=== PATIENT | female | born 1985 ===

== ENCOUNTER 2017-02-14 08:16 | Emergency (ER) | payer MEDICAID ==
[2017-02-14 08:27] VITALS: BP 141/72; PULSE 92; RESP 18; TEMP 98.1; O2SAT 90; BMI 46.2
--- NOTE | 2017-02-14 09:53 | ED PDOC ---
HPI: CCC, URI, Sore Throat Time Seen by Provider: 02/14/17 09:02 Chief Complaint (Nursing): ENT Problem Chief Complaint (Provider): flu like symptoms History Per: Patient, Search Specialist (Indemand) History/Exam Limitations: other (poor cognition\) Onset/Duration Of Symptoms: Gradual, Unknown Current Symptoms Are (Timing): Still Present Location Of Pain: Throat, Diffuse Myalgias Sick Contacts (Context): None Associated Symptoms: Chills, Sore Throat, Cough, Myalgias. denies: Vomiting, Diarrhea Severity: Moderate Additional Complaint(s): 31yo female hx tricuspid regurg (?) during prior , now 13wks , with body aches, cough, sore throat and yellow crusting to eyes this morning. Denies orthopnea, SOB, focal weakness, change vision or sick contacts. Did not get flu shot this year. Has not had care yet, due to start in [place] on march 04. Past Medical History Reviewed: Historical Data, Nursing Documentation, Vital Signs Vital Signs: Last Vital Signs Temp 98.1 F 02/14/17 08:25 Pulse 92 H 02/14/17 08:25 Resp 18 02/14/17 08:25 BP 141/72 02/14/17 08:25 Pulse Ox 90 L 02/14/17 11:48 - Medical History PMH: Anxiety, Asthma, Depression, Diabetes (gestational), Hypercholesterolemia, Pneumonia Denies: Chronic Kidney Disease - Family History Family History: States: Unknown Family Hx - Living Arrangements Living Arrangements: With Family - Social History Current smoker - smoking cessation education provided: No - Immunization History Hx Tetanus Toxoid Vaccination: No Hx Influenza Vaccination: No Hx Pneumococcal Vaccination: No - Home Medications Home Medications: Ambulatory Orders Medication Instructions Recorded Acetaminophen [Tylenol 325mg tab] 650 mg PO Q4 PRN #0 tab 02/23/16 Acetaminophen [Pain Reliever] 650 mg PO Q4 PRN #16 tablet 02/14/17 Cephalexin [Keflex] 250 mg PO TID #15 capsule 02/14/17 Pnv#26/Iron Poly/FA/Dha 1 tab PO DAILY 02/14/17 [Vitafol-One Capsule] Polymyxin/Trimethoprim Sulfate 2 drop OU TID #1 bottle 02/14/17 [Polytrim Ophth Soln] - Allergies Allergies/Adverse Reactions: Allergies Allergy/AdvReac Type Severity Reaction Status Date / Time No Known Allergies Allergy Verified 02/14/17 08:41 Review of Systems Constitutional: Positive for: Chills ENT: Positive for: Throat Pain. Negative for: Ear Discharge, Nose Discharge, Throat Swelling Cardiovascular: Negative for: Chest Pain, Palpitations Respiratory: Negative for: Cough, Shortness of Breath Gastrointestinal: Negative for: Nausea, Vomiting Genitourinary Female: Negative for: Dysuria, Frequency, Vaginal Bleeding Musculoskeletal: Negative for: Neck Pain, Shoulder Pain Skin: Negative for: Rash, Lesions, Jaundice, Bruising Neurological: Positive for: Dizziness. Negative for: Weakness, Numbness Psych: Negative for: Anxiety Physical Exam - Reviewed Nursing Documentation Reviewed: Yes Vital Signs Reviewed: Yes - Physical Exam Appears: Positive for: Well, Non-toxic, No Acute Distress Head Exam: Positive for: ATRAUMATIC, NORMAL INSPECTION, NORMOCEPHALIC Skin: Positive for: Normal Color, Warm, DRY Eye Exam: Positive for: EOMI, Normal appearance, PERRL ENT: Positive for: Normal ENT Inspection, Pharyngeal Erythema, Tonsillar Exudate , Tonsillar Swelling (trace) Neck: Positive for: Normal, Painless ROM Cardiovascular/Chest: Positive for: Regular Rate, Rhythm Respiratory: Positive for: CNT, Normal Breath Sounds Gastrointestinal/Abdominal: Positive for: Normal Exam, Bowel Sounds, Soft. Negative for: Tenderness Back: Positive for: Normal Inspection Extremity: Positive for: Normal ROM Neurologic/Psych: Positive for: Alert, Oriented. Negative for: Motor/Sensory Deficits - ECG O2 Sat by Pulse Oximetry: 90 Medical Decision Making Medical Decision Making: check flu, SPO2 normal 98% in ED. Denies pelvic pain or bleeding. Tylenol started for symptoms. Flu negative. Given and clinical findings exudates start keflex empirically. Disposition - Clinical Impression Clinical Impression: Pharyngitis, Upper respiratory infection, Conjunctivitis - Disposition Referrals: [facility] [Outside] Disposition: Routine/Home Disposition Time: 11:30 Condition: STABLE Additional Instructions: Take medication as directed. Drink plenty of fluids, use tylenol only for pain or fever. Return to ER for any abdominal pain, bleeding, cramping or any concern. See OB doctor as soon as possible for further testing. Prescriptions: Cephalexin [Keflex] 250 mg PO TID #15 capsule Acetaminophen [Pain Reliever] 650 mg PO Q4 PRN #16 tablet PRN Reason: Pain, Moderate (4-7) Polymyxin/Trimethoprim Sulfate [Polytrim Ophth Soln] 2 drop OU TID #1 bottle Instructions: Pharyngitis (ED), Conjunctivitis (ED)
== END 2017-02-14 12:03 | disposition home or self-care (01) ==
LOC: H.ER 08:16
DX: J02.9 Acute pharyngitis, unspecified (principal); J06.9 Acute upper respiratory infection, unspecified; H10.9 Unspecified conjunctivitis; E78.00 Pure hypercholesterolemia, unspecified; F41.9 Anxiety disorder, unspecified; J45.909 Unspecified asthma, uncomplicated

== ENCOUNTER 2017-03-17 11:02 | Emergency (ER) | payer MEDICAID ==
[2017-03-17 11:03] VITALS: BMI 46.2
[2017-03-17 11:20] VITALS: BP 125/65; PULSE 86; RESP 20; TEMP 98.4; O2SAT 97
--- NOTE | 2017-03-17 11:59 | ED PDOC ---
HPI: General Adult Time Seen by Provider: 03/17/17 11:56 Chief Complaint (Nursing): Abdominal Pain Chief Complaint (Provider): abdominal pain History Per: Patient History/Exam Limitations: no limitations Additional Complaint(s): 31yo female, 17 weeks , A3, comes to the ED complaining of lower abdominal pain. States first 3x pregnancies have resulted in spontaneous abortions. No vaginal bleeding or discharge. Not taking anything for pain. No chest pain or shortness of breath. No tobacco, alcohol or drug use. 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 @ [facility] Past Medical History Reviewed: Historical Data, Nursing Documentation, Vital Signs Vital Signs: Last Vital Signs Temp 98.4 F 03/17/17 11:15 Pulse 86 03/17/17 11:15 Resp 20 03/17/17 11:15 BP 125/65 03/17/17 11:15 Pulse Ox 97 03/17/17 12:03 - Medical History PMH: Anxiety, Asthma, Depression, Diabetes (gestational), Hypercholesterolemia, Pneumonia Denies: Chronic Kidney Disease - Family History Family History: States: Unknown Family Hx - Living Arrangements Living Arrangements: With Family - Social History Current smoker - smoking cessation education provided: No Alcohol: None Drugs: Denies - Immunization History Hx Tetanus Toxoid Vaccination: No Hx Influenza Vaccination: No Hx Pneumococcal Vaccination: No - Home Medications Home Medications: Ambulatory Orders Medication Instructions Recorded Acetaminophen [Tylenol 325mg tab] 650 mg PO Q4 PRN #0 tab 02/23/16 Acetaminophen [Pain Reliever] 650 mg PO Q4 PRN #16 tablet 02/14/17 Cephalexin [Keflex] 250 mg PO TID #15 capsule 02/14/17 Pnv#26/Iron Poly/FA/Dha 1 tab PO DAILY 02/14/17 [Vitafol-One Capsule] Polymyxin/Trimethoprim Sulfate 2 drop OU TID #1 bottle 02/14/17 [Polytrim Ophth Soln] - Allergies Allergies/Adverse Reactions: Allergies Allergy/AdvReac Type Severity Reaction Status Date / Time No Known Allergies Allergy Verified 03/17/17 11:15 Review of Systems ROS Statement: Except As Marked, All Systems Reviewed And Found Negative Gastrointestinal: Positive for: Abdominal Pain Genitourinary Female: Negative for: Dysuria, Hematuria Physical Exam - Reviewed Nursing Documentation Reviewed: Yes Vital Signs Reviewed: Yes - Physical Exam Appears: Positive for: Well, Non-toxic, No Acute Distress Head Exam: Positive for: ATRAUMATIC, NORMAL INSPECTION, NORMOCEPHALIC Skin: Positive for: Warm, Dry Eye Exam: Positive for: EOMI, PERRL Cardiovascular/Chest: Positive for: Regular Rate, Rhythm Respiratory: Positive for: Normal Breath Sounds. Negative for: Rales, Rhonchi, Wheezing Gastrointestinal/Abdominal: Positive for: Normal Exam, Soft. Negative for: Tenderness Extremity: Positive for: Normal ROM - Laboratory Results Result Diagrams: 03/17/17 12:20 - ECG O2 Sat by Pulse Oximetry: 97 (RA) Pulse Ox Interpretation: Normal Medical Decision Making Medical Decision Makin explained UTI vs round ligament. Labs resulted and reviewed with pt who demonstrated full understanding Labs, US pelvis ordered. Impression: Single living fetus with a composite sonographic age of 17 weeks 6 days. Estimated heart rate 152 beats per min. The study was performed for the emergent evaluation of pain, and the whole anatomic survey of the fetus was not performed. This should be performed on an outpatient elective basis as clinically warranted. Disposition - Clinical Impression Clinical Impression: Abdominal pain - Patient ED Disposition Is Patient to be Admitted: No - Disposition Disposition: Routine/Home Disposition Time: 15:59 Condition: STABLE Instructions: Abdominal Pain in (ED) Additional Comments - Additional Comments Additional Comments: Scribe Attestation Documented by Anthony Larry acting as a scribe for Isidro Hudson PA-C. Provider Attestation: All medical record entries made by the Scribe were at my direction and personally dictated by me. I have reviewed the chart and agree that the record accurately reflects my personal performance of the history, physical exam, medical decision making, and the department course for this patient. I have also personally directed, reviewed, and agree with the discharge instructions and disposition.
[2017-03-17 12:35] LABS: BASO # 0.1 K/uL (0.0-0.2); BASO % 0.6 % (0.0-2.0); EOS # 0.1 K/uL (0.0-0.7); EOS % 0.8 % (0.0-4.0); HEMATOCRIT 36.8 % (34.0-47.0); LYMPH # 2.5 K/uL (1.0-4.3); LYMPH % 23.3 % (20.0-40.0); MEAN CELL VOLUME 86.8 fl (81.0-99.0); MEAN CORPUSCULAR HEMOGLOBIN 28.9 pg (27.0-31.0); MEAN CORPUSCULAR HGB CONC 33.3 g/dL (33.0-37.0); MEAN PLATELET VOLUME 9.2 fl (7.2-11.7); MONO # 0.7 K/uL (0.0-0.8); MONO % 6.4 % (0.0-10.0); NEUT # 7.5 K/uL (1.8-7.0); NEUT % 68.9 % (50.0-75.0); RED CELL DISTRIBUTION WIDTH 12.4 % (11.5-14.5); WHITE BLOOD COUNT 10.9 K/uL (4.8-10.8)
[2017-03-17 12:39] LABS: RBC URINE 1 /hpf (0-3); URINE BILIRUBIN NEGATIVE (NEGATIVE); URINE BLOOD SMALL (NEGATIVE); URINE COLOR YELLOW (YELLOW); URINE GLUCOSE (UA) NEG (Normal); URINE KETONE NEGATIVE (NEGATIVE); URINE LEUKOCYTE ESTERASE NEG Leu/uL (Negative); URINE PROTEIN NEGATIVE (NEGATIVE); URINE UROBILINOGEN 0.2-1.0 mg/dL (0.2-1.0); WBC URINE < 1 /hpf (0-5)
--- NOTE | 2017-03-17 14:20 | US ---
Indication: pain, 17 weeks Comparison: Ob transvaginal ultrasound performed 01/02/17 Technique: Real-time ultrasound was performed through the pelvis. Findings: There is a single living fetus in transverse presentation. Fundal right placenta. Bilateral ovaries are not visualized. Measurements and calculations: Fetus has a composite sonographic age of 17 weeks 6 days plus/-1 week. This calculation is based on the biparietal diameter, head circumference, abdominal circumference, and femur length. Estimated heart rate 152 beats per min. Impression: Single living fetus with a composite sonographic age of 17 weeks 6 days. Estimated heart rate 152 beats per min. The study was performed for the emergent evaluation of pain, and the whole anatomic survey of the fetus was not performed. This should be performed on an outpatient elective basis as clinically warranted.
== END 2017-03-17 14:49 | disposition home or self-care (01) ==
LOC: H.ER 11:02
DX: O99.89 Other specified diseases and conditions complicating pregnancy, childbirth and the puerperium (principal); Z3A.17 17 weeks gestation of pregnancy

== ENCOUNTER 2017-06-12 20:25 | Emergency (ER) | payer MEDICAID ==
[2017-06-12 21:11] VITALS: BMI 45.7
[2017-06-12 21:44] LABS: SQUAMOUS EPITHIAL 1 /hpf (0-5); URINE BACTERIA OCC (<OCC); URINE BILIRUBIN NEGATIVE (NEGATIVE); URINE BLOOD SMALL (NEGATIVE); URINE CLARITY SLIGHTY-CLOUDY (Clear); URINE COLOR YELLOW (YELLOW); URINE GLUCOSE (UA) NEG (Normal); URINE LEUKOCYTE ESTERASE NEG Leu/uL (Negative); URINE NITRATE NEGATIVE (NEGATIVE); URINE PROTEIN NEGATIVE (NEGATIVE); URINE UROBILINOGEN 0.2-1.0 mg/dL (0.2-1.0)
--- NOTE | 2017-06-12 22:28 | OBHP ---
Datetime: 06/12/2017 21:22 IP Adm Impression: , intrauterine IP Chief Complaint Other: abdominal cramps and pressure IP Admit Plan: Observation/Evaluation Admit Comment, IP Provider: CC: "cramps and pressure" HPI: 32 yo at 30.4 wks GA with LEROY on 08/17/17 presents to [facility] for cramping and pressure in the pelvic area. Per patient this started yesterday around 14:30 and has worsened over the past da y. It is worsened with movement and resolves with laying down. Per patient this has been an uncomplic ated thus far. Good movement, no contractions, no VB and no LOC. Denies chest pain, d yspnea, fever, chills, dysuria, urinary frequency, N/V. PAST OB HX: 2 full term pregnancies delivered vaginally, 2 miscarriges at 8 weeks and 4 weeks and one still at 20 weeks with D/C. 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 Normal pap PMHX: GDM in 2010 and tricuspid regurgitation during second . PAST SX HX: denies SOCIAL HX: denies SMOKING ,ALCOHOL ,DRUGS FH: DM in mother, father DM, HTN and lung cancer MEDICATION: PNV ALLERGIES: NKDA PE VITALS: VS stable, pt afebrile Gen: NAD Cardiac: S1S2, no M/G/R Resp: vesicular breathing b/l Abodmen: gravid, NT, BS+ cervical exam: cervix is closed, and thick monitor: FHR 140, moderate variability No contractions noted on monitor ASSESSMENT/PLAN: 32 YO at 30.4 wks with PMH of GDM presents to [facility] for abdominal cramping and pressure. Pt is currently under observation. -UA -transvaginal U/S with cervical length -PO tylanol 650mg given once -monitor and reassess patient is subsequently seen and reassessed, UA is negative and transvaginal US reported a closed cervix with a cervical length of 5.8-6cm. Pt is stable with [facility] and no contracts. D/C to home. Pt has a follow up apt 06/13/17. pt was seen and discussed with attending Dr. Adán Rizzo, PGY-I OB Hospitalist Addendum: Pt seen and examined by me. Agree w/ above. 32 yo at 30+4 wks c /o cramps and increased pelvic pressure- like the baby is pushing down- since yesterday. Pt denies L OF, VB, and reports FM. Pt denies dysuria. Ua small blood, occ bacteria and 1 sq epi. Sp. gravity high. VE: closed/ thick. U/s cervis was 5.8-6 cm long and closed. FHT reactive. Pt reports that she felt better after receiving tylenol 650mg. Pt encouraged to drink more water and was discharged home. Pt reports that she will be tested for GDM tomorrow. Pt will f/u in clinic on 06/16/2017. (ES) Pelvic Type - PN: Adequate Extremities - PN: Normal Abdomen - PN: Normal Back - PN: Not Done Breast - PN: Not Done Lungs - PN: Normal Heart - PN: Normal Thyroid - PN: Not Done Neurologic - PN: Normal HEENT - PN: Normal General - PN: Normal FHR - Baseline A Provider: 140 Pool Provider: Negative EGA AdmitDate IP: 30.4 Vital Signs Provider: Reviewed IP Chief Complaint: Other NICHD Variability Prov Fetus A: Moderate 6-25bpm NICHD Accel Fetus A IP Provider: 15X15 FHR Category Provider Fetus A: Category I Genitourinary Exam: Normal DTRs - PN: Not Done
--- NOTE | 2017-06-12 22:31 | OBDCSUM ---
Datetime: 06/12/2017 22:09 Discharged to, Provider: Home Follow up at, Provider: Primary OBG[facility] Disch Instr Activity: Normal activity Disch Instr Diet: Regular Discharge Instructions, Provider: Routine instructions given Discharge Time: 06/12/2017 22:15 Follow up in weeks, Provider: 06/16/17 Disch Referrals: None Contraception discussed, Prov: Yes Discharge Diagnosis Prov Other: Abdominal pain at 30+4 wks
--- NOTE | 2017-06-12 22:36 | US ---
EXAM: US , Transvaginal, limited CLINICAL HISTORY: 32 years old, female; Pain; Other: Only cervical length; Gestational age or lmp: Unknown; TECHNIQUE: Limited transvaginal obstetrical ultrasound of the maternal pelvis was performed to detect cervical length. COMPARISON: No relevant prior studies available. FINDINGS: The cervix measures 6 cm and is closed. IMPRESSION: Cervix measurement, as detailed above.
[2017-06-13 02:53] VITALS: BP 119/52; PULSE 93; TEMP 98.2
== END 2017-06-12 22:15 | disposition home or self-care (01) ==
LOC: H.EROB2 20:25
DX: O47.03 False labor before 37 completed weeks of gestation, third trimester (principal); Z3A.30 30 weeks gestation of pregnancy; O09.292 Supervision of pregnancy with other poor reproductive or obstetric history, second trimester; O09.93 Supervision of high risk pregnancy, unspecified, third trimester

== ENCOUNTER 2017-07-17 18:28 | Emergency (ER) | payer MEDICAID ==
--- NOTE | 2017-07-17 21:45 | OBHP ---
Datetime: 07/17/2017 19:30 IP Adm Impression: , intrauterine IP Admit Plan: Discharge home Admit Comment, IP Provider: CHIEF COMPLAINT: loss of mucus plug HPI: 32 yo at 35.4 wks GA with EDC by us +: FM - ROM, VB, CTX last U/S 07/09/2017 last visit 07/09/2017 GBS unknown She shares that a few hours ago, she noticed a mucus plug discharge from her vagina. Soon after, she asked her to have intercourse in order to induce labor. 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 Lungs: clear to auscultation bilaterally, no wheezing Abdomen: gravid CVA: negative SSE/PELVIC EXN: no vaginal bleed or pooling of amniotic fluid; long cervix 1 cm dilation; MONITOR (normal) Variablity: moderate: 6-25 bpm ACC: 15x15 DECC: none FHR: 140 ASSESSMENT: 32 yo IUP at 35.4 wks with h/o x 2 in 2011 and 2010 SSE/PELVIC EXN: no vaginal bleed or pooling of amniotic fluid; long cervix 1 cm dilation; PLAN: False labor; patient was discharged home. Her next US appt is on Friday; Next follow up appointment is in [address] Lillian carballo. Pt instructed to return should she experience further emergencies, LOF, decreased FM, CTX, VB. LES, PGY1 OB hospitalist addendum: Patient seen and examined by me agree with above assessment and plan. Plan labor precautions and kick counts Follow-up for her next OB appointment as scheduled Pelvic Type - PN: Adequate Extremities - PN: Normal Abdomen - PN: Normal Back - PN: Normal Breast - PN: Not Done Lungs - PN: Normal Heart - PN: Normal Thyroid - PN: Not Done Neurologic - PN: Normal HEENT - PN: Normal General - PN: Normal FHR - Baseline A Provider: 140 EGA AdmitDate IP: 35.4 Vital Signs Provider: Reviewed; Within Normal Limits IP Chief Complaint: Other NICHD Variability Prov Fetus A: Moderate 6-25bpm NICHD Accel Fetus A IP Provider: 15X15 FHR Category Provider Fetus A: Category I NICHD Decel Fetus A IP Provider: None Dilatation, Provider: 1 Effacement, Provider: 0 Station, Provider: -4 Genitourinary Exam: Normal DTRs - PN: Not Done
[2017-07-18 00:32] VITALS: BP 133/76; PULSE 73
== END 2017-07-17 20:15 | disposition home or self-care (01) ==
LOC: H.EROB2 18:28 → H.EROB 18:40 → H.EROB2 20:15
DX: O47.03 False labor before 37 completed weeks of gestation, third trimester (principal); Z3A.35 35 weeks gestation of pregnancy

== ENCOUNTER 2017-08-13 07:47 | Inpatient (IN) | payer MEDICAID ==
[2017-08-13 09:18] VITALS: BMI 44.9
[2017-08-13 09:58] LABS: BASO % 0.3 % (0.0-2.0); EOS # 0.1 K/uL (0.0-0.7); EOS % 0.9 % (0.0-4.0); HEMATOCRIT 38.2 % (34.0-47.0); LYMPH % 19.5 % (20.0-40.0); MEAN CORPUSCULAR HEMOGLOBIN 28.6 pg (27.0-31.0); MEAN CORPUSCULAR HGB CONC 32.9 g/dL (33.0-37.0); MEAN PLATELET VOLUME 10.6 fl (7.2-11.7); MONO # 0.8 K/uL (0.0-0.8); MONO % 7.5 % (0.0-10.0); NEUT # 7.2 K/uL (1.8-7.0); NEUT % 71.8 % (50.0-75.0); NRBC % 0.1 % (0.0-0.0); RED CELL DISTRIBUTION WIDTH 13.5 % (11.5-14.5)
[2017-08-13 10:17] LABS: ALB/GLOB RATIO 1.1 (1.0-2.1); ALKALINE PHOSPHATASE 70 U/L (38-126); ALT/SGPT 23 U/L (9-52); AST/SGOT 23 U/L (14-36); BILIRUBIN,TOTAL 0.3 mg/dl (0.2-1.3); BLOOD UREA NITROGEN 12 mg/dl (7-17); CALCIUM 8.6 mg/dL (8.4-10.2); CARBON DIOXIDE 21 mmol/L (22-30); CHLORIDE 107 mmol/L (98-107); GFR AFRICAN-AMERICAN > 60; GLUCOSE,RANDOM 88 mg/dL (65-105); POTASSIUM 4.2 MMOL/L (3.6-5.0); SODIUM 137 mmol/l (132-148); TOTAL PROTEIN 6.2 G/DL (6.3-8.2); URIC ACID 6.1 mg/Dl (2.2-7.5)
[2017-08-13 11:02] LABS: URINE BILIRUBIN NEGATIVE (NEGATIVE); URINE BLOOD LARGE (NEGATIVE); URINE COLOR YELLOW (YELLOW); URINE GLUCOSE (UA) NEG (Normal); URINE KETONE NEGATIVE (NEGATIVE); URINE LEUKOCYTE ESTERASE NEG Leu/uL (Negative); URINE PROTEIN >=500 mg/dL (NEGATIVE); URINE UROBILINOGEN 0.2-1.0 mg/dL (0.2-1.0)
[2017-08-13 11:41] LABS: RBC URINE 120 /hpf (0-3); URINE BACTERIA MOD (<OCC)
[2017-08-13 11:42] LABS: WBC URINE 11 /hpf (0-5)
--- NOTE | 2017-08-13 13:27 | OBHP ---
Datetime: 08/13/2017 09:58 IP Adm Impression: Term, intrauterine IP Admit Plan: Observation/Evaluation Admit Comment, IP Provider: 32 yo at 38+1 wks w/ EDC 08/26/2017 c/o that she noticed blood w / wiping, "still bleeding," denies LOF, HAs, vision changes, abdominal pain, N/V. Pt reports that sh chana feels occasional [place]-Morin. Pt reports that she had intercourse 2 days ago. Pt reports FM. P t reports that she receives PN care w/ [facility]. 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 BPs elevated. NST re active Will obtain PEC labs and follow BP's. Extremities - PN: Normal Abdomen - PN: Normal Neurologic - PN: Normal General - PN: Normal FHR - Baseline A Provider: 130's Membranes, Provider: Intact Contraction Comments Provider: occasional Comments, ACOG Physical Exam: Spec: blood in vault No blood on pad beneath pt EGA AdmitDate IP: 38.1 IP Chief Complaint: Vaginal bleeding NICHD Variability Prov Fetus A: Moderate 6-25bpm NICHD Accel Fetus A IP Provider: 15X15 NICHD Decel Fetus A IP Provider: None Dilatation, Provider: 0 Effacement, Provider: 0 Station, Provider: -3 Genitourinary Exam: Abnormal DTRs - PN: Normal
[2017-08-13] MEDS ORDERED: Oxytocin 30 units/LR 500ML 500 ML IV SCH (13:30)
[2017-08-13] MEDS ORDERED: Lactated Ringer's 1,000 ML IV SCH (13:30)
--- NOTE | 2017-08-13 13:35 | OBADHP ---
Datetime: 08/13/2017 13:27 Admit Comment, IP Provider: 32 yo at 38+1 wks w/ EDC 08/26/2017 c/o that she noticed blood w / wiping, "still bleeding," denies LOF, HAs, vision changes, abdominal pain, N/V. Pt reports that sh e feels occasional [place]-Morin. Pt reports that she had intercourse 2 days ago. Pt reports FM. P t reports that she receives PN care w/ [facility]. 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 BPs elevated. NST re active, PEC labs w/i nl range. Will induce labor given elevated BPs at 38+ weeks Will obtain records from [facility]. Extremities - PN: Normal Abdomen - PN: Normal Lungs - PN: Normal Heart - PN: Normal General - PN: Normal FHR - Baseline A Provider: 130's Membranes, Provider: Intact Contraction Comments Provider: occasional Comments, ACOG Physical Exam: Spec: blood in vault Vital Signs Provider: Reviewed IP Chief Complaint: Vaginal bleeding NICHD Variability Prov Fetus A: Moderate 6-25bpm NICHD Accel Fetus A IP Provider: 15X15 FHR Category Provider Fetus A: Category I NICHD Decel Fetus A IP Provider: None Dilatation, Provider: 0 Effacement, Provider: 0 Station, Provider: -3 Genitourinary Exam: Abnormal DTRs - PN: Normal EGA AdmitDate IP: 38.1 IP Adm Impression: Term, intrauterine IP Admit Plan: Initiate labor induction protocol Datetime: 08/13/2017 09:58 Neurologic - PN: Normal Datetime: 07/17/2017 19:30 Pelvic Type - PN: Adequate Back - PN: Normal Breast - PN: Not Done Thyroid - PN: Not Done HEENT - PN: Normal Datetime: 06/12/2017 21:22 IP Chief Complaint Other: abdominal cramps and pressure Pool Provider: Negative
[2017-08-13] MEDS ORDERED: Oxytocin 30 units/LR 500ML 30 U/500 ML BAG IV ONE (13:37)
--- NOTE | 2017-08-13 17:17 | OBPN ---
Datetime: 08/13/2017 17:13 IP Progress Impression: Gest. HTN/PreEclampsia/Eclampsia IP Procedures: Sterile Vag Exam IP Progress Plan: Cervical Ripening Membranes, Provider: Intact Contraction Comments Provider: occasional FHR - Baseline A Provider: 130's IP Progress Note Comment: 32 yo at 38+1 w/ Gestational HTN at 38+1 wks for induction of lab or Cervidil placed at 5:10pm FHT reassuring, GBS unknown Vital Signs Provider: Reviewed NICHD Accel Fetus A IP Provider: 15X15 FHR Category Provider Fetus A: Category I NICHD Variability Prov Fetus A: Moderate 6-25bpm Dilatation, Provider: 0 Effacement, Provider: 0 Station, Provider: -3 NICHD Decel Fetus A IP Provider: None Datetime: 06/12/2017 21:22 Pool Provider: Negative
[2017-08-14] MEDS: Lactated Ringer's 1,000 ML IV SCH ×2 (01:09→13:15)
[2017-08-14 11:10] LABS: HEMATOCRIT 37.9 % (34.0-47.0); MEAN CELL VOLUME 85.5 fl (81.0-99.0); RED CELL DISTRIBUTION WIDTH 13.2 % (11.5-14.5); WHITE BLOOD COUNT 9.3 K/uL (4.8-10.8)
--- NOTE | 2017-08-14 11:13 | OBPN ---
Datetime: 08/14/2017 10:37 IP Progress Impression: Gest. HTN/PreEclampsia/Eclampsia IP Informed Consent Obtain: Section Delivery IP Procedures: Sterile Vag Exam IP Progress Plan: Deliver- Section Contraction Comments Provider: q5 min FHR - Baseline A Provider: 140 IP Progress Note Comment: 32 y/o at 38w2d based on first trimester u/s EDC 08/26/17. Patient presented with vaginal spotting and found to have elevated bp. Admitted for gestational htn r/o PEC at term for IOL. Patient is s/p cervidil but removed early due to declerations. Patient this morning reports mild contractions, denies headaches, denies changes in vision, denies SOB/CP/numbness/weakness. Exam: BP in mild range unable to obtain DTRs on upper and lower extremities SVE: 1cm, long, soft, posterior and -3 Labs: 08/13/17 CMP wnl, UA >500 protein, large protein RBC >120 A/P: term IOL for gestational HTN r/o PEC, not tolerating labor, remote from delivery, consented f or c/s delivery 1. Fetus: caterogy 2 tracing, good variability, reposition, O2, IVF 2. Labor: consented for c/s, anesthesia aware, awaiting for second surgical attending for assistan ce 3. GHTN r/o PEC, no clinical features of severe PEC, check labs now, repeat urine protein to creat inine ratio with straight cath to avoid RBC, monitor BP and UO closely 4. GBS unknown, intact 5. BMI 47, DVT prophylaxis after c/s 6. Patient seen and examined with Dr. Castellon, patient consented for c/s by Dr. Castellon, patient plan of care discussed with Dr. Castellon. Vital Signs Provider: Reviewed Vital Signs Provider Details: BP range 123-148/65-82 NICHD Accel Fetus A IP Provider: 15X15 FHR Category Provider Fetus A: Category II NICHD Variability Prov Fetus A: Moderate 6-25bpm Dilatation, Provider: 1 Effacement, Provider: 20 Station, Provider: -3 NICHD Decel Fetus A IP Provider: Early; Late; Variable
[2017-08-14 11:23] LABS: ALB/GLOB RATIO 1.1 (1.0-2.1); ALKALINE PHOSPHATASE 71 U/L (38-126); ALT/SGPT 27 U/L (9-52); AST/SGOT 22 U/L (14-36); BILIRUBIN,TOTAL 0.3 mg/dl (0.2-1.3); BLOOD UREA NITROGEN 12 mg/dl (7-17); CALCIUM 8.6 mg/dL (8.4-10.2); CARBON DIOXIDE 21 mmol/L (22-30); CHLORIDE 106 mmol/L (98-107); GFR AFRICAN-AMERICAN > 60; GLUCOSE,RANDOM 84 mg/dL (65-105); POTASSIUM 4.3 MMOL/L (3.6-5.0); SODIUM 136 mmol/l (132-148); URIC ACID 6.1 mg/Dl (2.2-7.5)
[2017-08-14 12:19] LABS: CREATININE, RANDOM URINE 225.1 mg/dL
[2017-08-14] MEDS ORDERED: Morphine 1 mg/ml preservative-free Inj(Duramorph) ONE (13:14)
[2017-08-14] MEDS ORDERED: Oxycodone/Acetaminophen 5/325 mg Tab PO PRN ×5 (15:16→17:22)
[2017-08-14] MEDS ORDERED: Naloxone 0.4 mg/ml Inj (Adult) IVP PRN ×3 (15:27→17:22)
[2017-08-14] MEDS ORDERED: DiphenhydrAMINE 50 mg/ml Inj IVP PRN ×3 (15:27→17:22)
[2017-08-14] MEDS ORDERED: Dextrose 5%/0.45% NS 1,000 ML IV SCH (15:30)
[2017-08-14] MEDS ORDERED: Lactated Ringer's 1,000 ML IV SCH ×2 (15:45→17:03)
--- NOTE | 2017-08-14 22:59 | OBPN ---
Datetime: 08/14/2017 22:37 IP Progress Note Comment: Late entry Patient was admitted at 38.1 weeks for induction after elevated blood pressures observed upon obse rvation. Patient was diagnosed with gestational hypertension and Cervidil was placed. Cervidil Cervid il was removed after verbal type decelerations were noted with the contractions. Patient continued to contract and the variable decelerationswith good intervening recovery. The patient was consented fo r a primary sections and indications discussed with patient she agreed the planned procedure . BMI n45 Gest HTN Intolerance to Ctx P: primary CD
[2017-08-15] MEDS: Lactated Ringer's 1,000 ML IV SCH ×2 (01:46→13:22)
--- NOTE | 2017-08-15 03:03 | OP ---
PROCEDURE DATE: 08/13/2017 PREOPERATIVE DIAGNOSES: 1. intolerance to contractions. 2. Failed induction at 38.2 weeks for gestational hypertension. POSTOPERATIVE DIAGNOSES: 1. intolerance to contractions. 2. Failed induction at 38.2 weeks for gestational hypertension. PROCEDURE: Primary low transverse section. SURGEON: Yo Castellon MD IP COUNSEL: Erik Rowley MD SECOND HAT BRIM CURLER: Dr. Jones, PGY1. ANESTHESIOLOGIST: Dr. Sanchez. ANESTHESIA: Spinal. PATHOLOGY SPECIMENS: None. ESTIMATED BLOOD LOSS: 700 mL. COMPLICATIONS: None. DESTINATION: The patient to recovery room in satisfactory condition, to [facility]. FINDINGS: The patient was a viable male with Apgars of 9 and 9 and weight of 3185 g equal to 7 pounds 5 ounces. INDICATIONS: The patient is a 32-year-old female, 6, para 2-0-3-2, admitted at 38.1 weeks. She was admitted for induction for gestational hypertension. Cervidil was placed at which the patient developed variable decelerations with the contractions. Following removal of the cervidil patient had good recovery between contractions. She had spontaneous rupture of membranes at which point the variables increased in frequency and informed consent was obtained for primary section. Risks, benefits, and indications were discussed with the patient. She agreed with planned procedure. DESCRIPTION OF PROCEDURE: The patient was taken back to the operating room, where she underwent her spinal anesthesia without complications. She was then placed in dorsal supine position with a leftward tilt and prepped and draped in the routine sterile fashion. A Pfannenstiel skin incision was made with a knife, this was carried down to the underlying rectus fascia. The rectus fascia was incised in the midline and extended bilaterally. The inferior rectus facial edge was grasped with Timo's, elevated, and the underlying rectus muscle was resected off. The same procedure was performed along the superior rectus fascial edge. The rectus muscle was identified, in the midline. The underlying peritoneum was identified, tented upward, and incised superiorly and inferiorly. A bladder blade was placed, and the bladder flap was created using sharp and blunt dissection. A lower uterine transverse incision was made with a knife, and the incision was then digitally extended laterally and in a cephalocaudad manner. The 's head was delivered followed by the remaining portion of the baby in a routine fashion. The mouth and nares were suctioned. The cord was clamped and cut. The baby was handed off to the awaiting blocker heated metal forms. Cord blood was collected. Attempt was made to express the placenta and the cord evulsed. The placenta was manually extracted. The uterus was left within the abdomen and the uterine cavity was cleaned with a lap. The uterine incision was reapproximated with 0 Vicryl in a running locked fashion followed by an imbricated stitch with 0 Moncryl. Good hemostasis was confirmed. The abdomen was irrigated and cleared of all clots and debris. The uterine incision was reinspected and good hemostasis confirmed. The peritoneum was reapproximated with 2-0 Vicryl in a running fashion. The fascia was reapproximated with 0 Vicryl in a running fashion beginning in the right lateral quadrant, going to the midline, followed by lateral quadrant and going to the midline each suture was sequentially tied. The wound was irrigated, good hemostasis confirmed, and subcutaneous tissue was re-approximated with 2-0 plain in a simple interrupted fashion. The skin was reapproximated with sidra. All sponge, lap and needle count were correct x2. The patient returned to the recovery room in satisfactory condition. Of note, Dr. Rowley was my neurosurgical nurse. He assisted in surgical entry, surgical exposure, surgical hemostasis, delivery of the baby, and surgical closure. His assistance was essential to the procedure. Yo Castellon MD [facility]
[2017-08-15 06:10] LABS: HEMATOCRIT 34.7 % (34.0-47.0); MEAN CELL VOLUME 86.8 fl (81.0-99.0); MEAN CORPUSCULAR HEMOGLOBIN 28.6 pg (27.0-31.0); MEAN CORPUSCULAR HGB CONC 32.9 g/dL (33.0-37.0); RED CELL DISTRIBUTION WIDTH 13.3 % (11.5-14.5); WHITE BLOOD COUNT 10.9 K/uL (4.8-10.8)
--- NOTE | 2017-08-15 13:29 | OBPPN ---
Datetime: 08/15/2017 07:57 PP Pain Prov: Within normal limits PP Nausea Prov: Denies PP Flatus Prov: No PP BM Prov: No PP Heart Prov: Normal PP Lungs Prov: Normal PP Abdomen/Uterus Prov: Normal PP Lochia Prov: Normal PP Extremities Prov: Normal PP C/S Incision Prov: Normal PP Progress Prov: Normal PP Impression Prov: Normal progression PP Progress Note Prov: 32 yo F, now , s/p on 08/14/2017, due to non-reassuring FHR; term male delivered. Pt reports uneventful overnight. States she has moderate pain but states she do es not want pain medication at this time; she is aware that she may have it if she requests. Has not been OOB yet; bravo in place, to be removed today. Has not passed gas or had BM yet. Tolerated ice c hips and drinking water from ice chips last night. She wants circumcision for the baby. Denies fevers , dizziness, chills, nausea/vomiting/diarrhea, chest pain/shortness of breath, calf pain, lightheaded ness. PE: GEN: A_O, resting comfortably in bed, in no acute distress Lung: clear to auscultation bilaterally, normal respiratory effort CVS: S1/S2+, RRR Abd: +BS, firm fundus below umbilicus. Dressing clean and dry. EXT: no edema, negative Cole's, calves non-tender. Assessment: 32 yo F, now s/p 08/14/2017. Doing well on POD 1. Plan: Encourage early ambulation and . Pain control. -[email or web address] The patient was ssen with the resident I agree with the note Vital Signs Provider PP: Reviewed; Within Normal Limits
[2017-08-15] MEDS: Oxycodone/Acetaminophen 5/325 mg Tab PO PRN ×2 (14:07→18:57)
[2017-08-16] MEDS: Oxycodone/Acetaminophen 5/325 mg Tab PO PRN ×3 (00:06→20:03)
[2017-08-17 08:50] VITALS: BP 141/83; PULSE 94
--- NOTE | 2017-08-17 09:31 | OBDCSUM ---
Datetime: 08/17/2017 09:24 Discharged to, Provider: Home Follow up at, Provider: obgyn Disch Instr Activity: Normal activity Disch Instr Diet: Regular Discharge Instructions, Provider: Specific instructions as noted Discharge Diagnosis, Provider: Term Delivered Follow up in weeks, Provider: 1 week Contraception discussed, Prov: Yes Disch Activity Restrictions: No exercising; No lifting; No driving; Minimize stair-climbing; No sexu al activity; Nothing in vagina - [place], tampons, douche Discharge Comment, Provider: Patient seen and examined at bedside, sitting in a chair in no acute di stress. Denies headaches, dizziness, weakness, blurry vision nor abd pain. Reports she is pumping and giving baby breast milk as well as bottle milk. Tolerating PO diet, ambulating without difficulty. P ain managed with medication. PE: VSS Lungs: CTABL Cardiac: S1 S2 rrr, no murmurs/rubs/gallops Abd: bowel sound present, soft, no tenderness to palpation; incision clean/dry/intact Ext: no edema A: 32 yr s/p , stable P: -Discharge home -Ibuprofen 600mg PO Q6 PRN pain -Percocet 5/325 mg 1 tab PO Q4 PRN pain -encouraged breast feeding -no sexual intercourse, nothing in the vagina -Follow up with your obgyn in 1 weeks -Take baby to facilities maintenance assistant in 2-3 days Denise Anne M.D. -PGY2 The patient was seen with the resident and I agree with an out patient cleared for discharge Contraception after Delivery: IUD; Vasectomy
--- NOTE | 2017-08-17 09:33 | OBPPN ---
Datetime: 08/17/2017 09:17 PP Pain Prov: Within normal limits PP Nausea Prov: Denies PP Flatus Prov: Yes PP BM Prov: No PP Heart Prov: Normal PP Abdomen/Uterus Prov: Normal PP Lochia Prov: Normal PP CVA Tenderness Prov: Normal PP Extremities Prov: Normal PP C/S Incision Prov: Normal PP Progress Prov: Normal PP Comments Phys Exam Prov: incision clean/dry/intact PP Impression Prov: Normal progression PP Plan Prov: Continue present management PP Progress Note Prov: POD 3 Patient seen and examined at bedside, sitting in a chair in no acute distress. Denies headaches, d izziness, weakness, blurry vision nor abd pain. Reports she is pumping and giving baby breast milk as well as bottle milk. Tolerating PO diet, ambulating without difficulty. Pain managed with medication . PE: VSS Lungs: CTABL Cardiac: S1 S2 rrr, no murmurs/rubs/gallops Abd: bowel sound present, soft, no tenderness to palpation; incision clean/dry/intact Ext: no edema A: 32 yr s/p , stable P: -Continue present management -encouraged ambulation -pain management -encouraged breast feeding Denise Anne M.D. -PGY2 The patient was seen with the resident and I agree with an out patient cleared for discharge IP PP Procedures: None Vital Signs Provider PP: Reviewed Datetime: 08/16/2017 07:19 PP Lungs Prov: Normal
[2017-08-17 21:11] VITALS: RESP 20; TEMP 98.9; O2SAT 94
== END 2017-08-17 11:25 | disposition home or self-care (01) | DRG 651 ==
LOC: H.EROB2 07:47 → H.EROB 07:47 → H.L&D 13:17 → H.EROB2 13:17 → H.OB/GYN 08-14 17:20
PROVIDERS: ADMIT Obstetrics & Gynecology; ATTEND Obstetrics & Gynecology
PROC: 10D00Z1 Extraction of Products of Conception, Low, Open Approach (ICD-10-PCS; principal; 2017-08-13)
PROC: 3E0P7VZ Introduction of Hormone into Female Reproductive, Via Natural or Artificial Opening (ICD-10-PCS; 2017-08-13)
PROC: 4A1HXCZ Monitoring of Products of Conception, Cardiac Rate, External Approach (ICD-10-PCS; 2017-08-13)
PROC: 3E0234Z Introduction of Serum, Toxoid and Vaccine into Muscle, Percutaneous Approach (ICD-10-PCS; 2017-08-15)
DX: O13.4 Gestational [pregnancy-induced] hypertension without significant proteinuria, complicating childbirth (principal); O61.0 Failed medical induction of labor; O76 Abnormality in fetal heart rate and rhythm complicating labor and delivery; Z68.41 Body mass index [BMI] 40.0-44.9, adult; O99.213 Obesity complicating pregnancy, third trimester; Z37.0 Single live birth; Z3A.38 38 weeks gestation of pregnancy; Z23 Encounter for immunization; Z86.19 Personal history of other infectious and parasitic diseases